=== PATIENT | male | born 1980 | race Caucasian/White ===

== ENCOUNTER 2019-07-04 14:43 | Emergency (ER) | payer MEDICARE, MEDICAID ==
[~2019-07-04] VITALS: Ht 170.2 cm; Wt 77.1 kg
[2019-07-04] MEDS ORDERED: KETOROLAC TROMETH 60MG/2ML VIAL ONE (15:30)
[2019-07-04] MEDS ORDERED: KETOROLAC TROMETH 60MG/2ML VIAL IM ONE (15:45)
[2019-07-04 16:16] VITALS: BP 123/71
[2019-07-04] MEDS ORDERED: HYDROmorphone HCL 2 MG/ML VL ONE (16:22)
[2019-07-04] MEDS ORDERED: METOCLOPRAMIDE HCL 5MG/ml INJ 2ml VIAL IV ONE (16:30)
[2019-07-04] MEDS ORDERED: TETANUS-DIPTH-ACEL PERTUSSIS 0.5ML SYRG IM ONE (16:30)
[2019-07-04] MEDS ORDERED: HYDROmorphone HCL 2 MG/ML VL IV ONE (16:30)
== END 2019-07-04 17:46 | disposition home or self-care (01) ==
LOC: ER 14:43
DX: S52.502A Unspecified fracture of the lower end of left radius, initial encounter for closed fracture (principal); W11.XXXA Fall on and from ladder, initial encounter; Y93.89 Activity, other specified; Y92.89 Other specified places as the place of occurrence of the external cause; Y99.8 Other external cause status
CPT/HCPCS: 29125; 73110; 90471; 90715; 96372; 96374; 96375; 99283; J1170; J1885; J2765